=== PATIENT | female | born 1990 | race Caucasian/White ===

== ENCOUNTER 2017-11-14 23:56 | Emergency (ER) | payer OTHER ==
[2017-11-15] MEDS ORDERED: ONDANSETRON 4 MG/2 ML VIAL IVP STA (01:42)
[2017-11-15] MEDS ORDERED: KETOROLAC 30 MG/ML 1 ML VIAL IVP STA (01:42)
[2017-11-15] MEDS ORDERED: SODIUM CHLORIDE 0.9% 2,000 ML IV STA (01:42)
[2017-11-15 02:00] LABS: Appearance,Urine Clear (Clear); Bilirubin,Urine Negative (Negative); Blood,Urine Negative (Negative); Color,Urine Yellow; Glucose,Urine (UA) Negative (Negative); Ketones,Urine Negative (Negative); Leukocyte Esterase,Urine Negative (Negative); Nitrite,Urine Negative (Negative); PH, Urine 5.5 (5.0-8.0); Protein,Urine Trace (Negative); Specific Gravity,Urine 1.024 (1.001-1.035); Urobilinogen,Urine <2.0 mg/dL (<2.0)
[2017-11-15 02:33] LABS: Basophils # (A) 0.1 k/uL (0-0.2); Basophils % (A) 1 %; Eosinophils # (A) 0.6 k/uL (0-0.7); Eosinophils % (A) 6 %; HCT 36.7 % (34.0-46.0); HGB 12.6 gm/dL (11.4-16.0); Lymphocytes # (A) 3.1 k/uL (1.0-4.8); Lymphocytes % (A) 35 %; MCH 30.4 pg (25.0-35.0); MCHC 34.4 g/dL (31.0-37.0); MCV 88.6 fL (80.0-100.0); Mean Platelet Volume 6.5; Monocytes # (A) 0.4 k/uL (0-1.0); Monocytes % (A) 5 %; Neutrophils # (A) 4.5 k/uL (1.3-7.7); Neutrophils % (A) 51 %; Platelet Count 274 k/uL (150-450); RBC 4.15 m/uL (3.80-5.40); RDW 12.2 % (11.5-15.5); WBC 8.9 k/uL (3.8-10.6)
[2017-11-15 02:44] LABS: ALT 21 U/L (9-52); AST 16 U/L (14-36); Albumin 3.8 g/dL (3.5-5.0); Alkaline Phosphatase 40 U/L (38-126); Amylase 56 U/L (30-110); Anion Gap 6 mmol/L; Blood Urea Nitrogen 12 mg/dL (7-17); Carbon Dioxide 29 mmol/L (22-30); Chloride 104 mmol/L (98-107); Glucose 101 mg/dL (74-99); Lipase 140 U/L (23-300); Potassium 4.2 mmol/L (3.5-5.1); Sodium 139 mmol/L (137-145); Total Bilirubin 0.3 mg/dL (0.2-1.3); Total Protein 6.4 g/dL (6.3-8.2)
--- NOTE | 2017-11-15 02:57 | CT ---
EXAMINATION TYPE: CT abdomen pelvis wo con DATE OF EXAM: 11/15/2017 COMPARISON: None HISTORY: Right flank pain, back pain CT DLP: 272.20 mGycm Automated exposure control for dose reduction was used. TECHNIQUE: Helical acquisition of images was performed from the lung bases through the pelvis. FINDINGS: Lung bases are clear. There is no pleural effusion. There is subsegmental atelectasis at the lateral left lung base. Heart size is normal. There is no pericardial effusion. Stomach appears normal. Liver spleen pancreas gallbladder appear normal. Gallbladder is contracted. There is no adrenal mass. Kidneys have normal size and contour. There is no evidence of a renal calcu kash. Ureters do not appear dilated. I see no ureteral calculus. There is a septated large cystic pelvic mass above the urinary bladder and uterine fundus. This measu res 14 x 7.4 x 10 cm. This probably arises from the ovary. It is not clear which ovary is involved. U terus is anteverted. Bladder distends fairly smoothly. I see no bladder mass. There is no free fluid in the pelvis. The appendix appears normal. Appendix is anterior to the cystic pelvic mass. I see no intestinal wall thickening. There are no dilated loops. There is no retroperitoneal adenopathy. There is no mesenteric adenopathy. There is no inguinal hernia. The bony structures appear intact. IMPRESSION: THERE IS A LARGE SEPTATED THIN-WALLED CYSTIC PELVIC MASS PROBABLY OF OVARIAN ORIGIN. FOLLOW-UP IS REC OMMENDED. NO RENAL OBSTRUCTION. NORMAL APPENDIX.
--- NOTE | 2017-11-15 04:14 | ED ---
General Adult HPI - General Chief complaint: Abdominal Pain Stated complaint: lower back pain Time Seen by Provider: 11/15/17 01:35 Source: patient, RN notes reviewed Mode of arrival: ambulatory Limitations: no limitations - History of Present Illness Initial comments: 26-year-old female past medical history of asthma presents to the emergency department with a chief complaint of right flank pain times one week. Patient states these symptoms are similar with past episodes of pyelonephritis. Patient denies pain with urination but states that the last time she had pyelonephritis she did not have pain with urination and simply had the flank pain. She denies any history of kidney stones. Patient denies fevers or chills at home. She admits to mild nausea this week. Patient states she has felt pain and pressure in the right lower abdomen as well x 10 months. Patient states she has had worsening sharp right lower quadrant pain over the past week as well. Patient has no other complaints at this time including shortness of breath, chest pain, abdominal pain, nausea or vomiting, headache, or visual changes. - Related Data Home Medications Medication Instructions Recorded Confirmed Ibuprofen [Motrin] 600 mg PO Q8HR PRN 11/15/17 11/15/17 Allergies Allergy/AdvReac Type Severity Reaction Status Date / Time amoxicillin [Amoxicillin] Allergy Rash/Hives Verified 11/15/17 00:14 Penicillins Allergy Rash/Hives Verified 11/15/17 00:14 Review of Systems ROS Statement: Those systems with pertinent positive or pertinent negative responses have been documented in the HPI. ROS Other: All systems not noted in ROS Statement are negative. Past Medical History Past Medical History: Asthma History of Any Multi-Drug Resistant Organisms: None Reported Past Surgical History: Section, Tonsillectomy Additional Past Surgical History / Comment(s): ESTRADA PRASAD Past Anesthesia/Blood Transfusion Reactions: No Reported Reaction Past Psychological History: ADD/ADHD, Anxiety, Depression Smoking Status: Former smoker Past Alcohol Use History: None Reported Past Drug Use History: None Reported - Past Family History Father Additional Family Medical History / Comment(s): Patient has no contact with her father. Mother Additional Family Medical History / Comment(s): Mother is age 58 with history of schizophrenia. Brother(s) Additional Family Medical History / Comment(s): She states she has 1 brother that she does not know. She denies having any sisters. She has 4 children of her own. General Exam Limitations: no limitations General appearance: alert, in no apparent distress (Patient is nontoxic appearing, she is sitting up in bed, she is responsive and pleasant) Head exam: Present: atraumatic, normocephalic, normal inspection Eye exam: Present: normal appearance, PERRL, EOMI. Absent: scleral icterus, conjunctival injection, periorbital swelling ENT exam: Present: normal exam, mucous membranes moist Neck exam: Present: normal inspection, full ROM. Absent: tenderness, meningismus, lymphadenopathy Respiratory exam: Present: normal lung sounds bilaterally. Absent: respiratory distress, wheezes, rales, rhonchi, stridor Cardiovascular Exam: Present: regular rate, normal rhythm, normal heart sounds. Absent: systolic murmur, diastolic murmur, rubs, gallop, clicks GI/Abdominal exam: Present: soft, tenderness (Mild right lower quadrant tenderness), normal bowel sounds. Absent: distended, guarding, rebound, rigid Back exam: Present: CVA tenderness (R) Neurological exam: Present: alert, oriented X3, CN II-XII intact Psychiatric exam: Present: normal affect, normal mood Course Vital Signs 11/15/17 11/15/17 00:12 04:29 Temperature 98.4 F 97.8 F Pulse Rate 117 H 90 Respiratory 16 20 Rate Blood Pressure 119/77 118/62 O2 Sat by Pulse 98 97 Oximetry - Reevaluation(s) Reevaluation #1: 11/15/17 04:31 Spoke with iona on [facility] transfer team for [facility]. She is going to call back after speaking with a physician. Reevaluation #2: 11/15/17 05:02 Spoke with Steve at [facility]. They are currently trying to find a bed and will call back. Reevaluation #3: 11/15/17 05:53 Iona from [facility] called back with a bed available. [id number] 1. EMS will be activated at this time. Medical Decision Making - Medical Decision Making 26-year-old female presents to the emergency determine for a chief complaint of right flank pain times one week. Patient states symptoms are consistent with past episodes of pyelonephritis. She denies dysuria or fevers. Patient also states she has had right sided lower abdominal fullness for 10 months. She states she is starting to get sharp pain in the right lower quadrant as well. On exam patient does have tenderness noted in the right lower quadrant. Right CVA tenderness. CBC and CMP unremarkable. Urine does not show any evidence of infection. CT abdomen and pelvis was ordered. This shows a septated large cystic pelvic mass above the urinary bladder and uterine fundus. This measures 14 x 7.4 x 10 cm probably arising from the ovary. This puts patient at high risk of torsion. Dr Kirkland consulted Dr. Florez who recommended transfer. Patient reevaluated multiple times before transfer. Pain under control at this time. [facility] transfer. Patient will be transferred by EMS as a direct admit. - Lab Data Result diagrams: 11/15/17 02:09 11/15/17 02:09 Lab Results 11/15/17 11/15/17 11/15/17 Range/Units 01:50 01:50 02:09 WBC (3.8-10.6) k/uL RBC (3.80-5.40) m/uL Hgb (11.4-16.0) gm/dL Hct (34.0-46.0) % MCV (80.0-100.0) fL MCH (25.0-35.0) pg MCHC (31.0-37.0) g/dL RDW (11.5-15.5) % Plt Count (150-450) k/uL Neutrophils % % Lymphocytes % % Monocytes % % Eosinophils % % Basophils % % Neutrophils # (1.3-7.7) k/uL Lymphocytes # (1.0-4.8) k/uL Monocytes # (0-1.0) k/uL Eosinophils # (0-0.7) k/uL Basophils # (0-0.2) k/uL Sodium 139 (137-145) mmol/L Potassium 4.2 (3.5-5.1) mmol/L Chloride 104 (98-107) mmol/L Carbon Dioxide 29 (22-30) mmol/L Anion Gap 6 mmol/L BUN 12 (7-17) mg/dL Creatinine 0.71 (0.52-1.04) mg/dL Est GFR (CKD-EPI)AfAm >90 (>60 ml/min/1.73 sqM) Est GFR (CKD-EPI)NonAf >90 (>60 ml/min/1.73 sqM) Glucose 101 H (74-99) mg/dL Calcium 9.0 (8.4-10.2) mg/dL Total Bilirubin 0.3 (0.2-1.3) mg/dL AST 16 (14-36) U/L ALT 21 (9-52) U/L Alkaline Phosphatase 40 (38-126) U/L Total Protein 6.4 (6.3-8.2) g/dL Albumin 3.8 (3.5-5.0) g/dL Amylase 56 (30-110) U/L Lipase 140 (23-300) U/L Urine Color Yellow Urine Appearance Clear (Clear) Urine pH 5.5 (5.0-8.0) Ur Specific [place] 1.024 (1.001-1.035) Urine Protein Trace H (Negative) Urine Glucose (UA) Negative (Negative) Urine Ketones Negative (Negative) Urine Blood Negative (Negative) Urine Nitrite Negative (Negative) Urine Bilirubin Negative (Negative) Urine Urobilinogen <2.0 (<2.0) mg/dL Ur Leukocyte Esterase Negative (Negative) Urine HCG, Qual Not Detected (Not Detectd) 11/15/17 Range/Units 02:09 WBC 8.9 (3.8-10.6) k/uL RBC 4.15 (3.80-5.40) m/uL Hgb 12.6 (11.4-16.0) gm/dL Hct 36.7 (34.0-46.0) % MCV 88.6 (80.0-100.0) fL MCH 30.4 (25.0-35.0) pg MCHC 34.4 (31.0-37.0) g/dL RDW 12.2 (11.5-15.5) % Plt Count 274 (150-450) k/uL Neutrophils % 51 % Lymphocytes % 35 % Monocytes % 5 % Eosinophils % 6 % Basophils % 1 % Neutrophils # 4.5 (1.3-7.7) k/uL Lymphocytes # 3.1 (1.0-4.8) k/uL Monocytes # 0.4 (0-1.0) k/uL Eosinophils # 0.6 (0-0.7) k/uL Basophils # 0.1 (0-0.2) k/uL Sodium (137-145) mmol/L Potassium (3.5-5.1) mmol/L Chloride (98-107) mmol/L Carbon Dioxide (22-30) mmol/L Anion Gap mmol/L BUN (7-17) mg/dL Creatinine (0.52-1.04) mg/dL Est GFR (CKD-EPI)AfAm (>60 ml/min/1.73 sqM) Est GFR (CKD-EPI)NonAf (>60 ml/min/1.73 sqM) Glucose (74-99) mg/dL Calcium (8.4-10.2) mg/dL Total Bilirubin (0.2-1.3) mg/dL AST (14-36) U/L ALT (9-52) U/L Alkaline Phosphatase (38-126) U/L Total Protein (6.3-8.2) g/dL Albumin (3.5-5.0) g/dL Amylase (30-110) U/L Lipase (23-300) U/L Urine Color Urine Appearance (Clear) Urine pH (5.0-8.0) Ur Specific [place] (1.001-1.035) Urine Protein (Negative) Urine Glucose (UA) (Negative) Urine Ketones (Negative) Urine Blood (Negative) Urine Nitrite (Negative) Urine Bilirubin (Negative) Urine Urobilinogen (<2.0) mg/dL Ur Leukocyte Esterase (Negative) Urine HCG, Qual (Not Detectd) Disposition Clinical Impression: Pelvic mass Disposition: OTHER INSTITUTION NOT DEFINED Condition: Good Is patient prescribed a controlled substance at d/c from ED?: No Referrals: None,Stated [Primary Care Provider] - 1-2 days Time of Disposition: 04:15 - Out of Hospital Transfer - Req. Specs Out of Hospital Transfer - Requested Specifics: Other Non-Acute ([facility] direct admit)
[2017-11-15 04:29] VITALS: BP 118/62; PULSE 90; RESP 20; TEMP 97.8
== END 2017-11-15 06:21 | disposition short-term general hospital (02) ==
LOC: EC 23:56
DX: R19.09 Other intra-abdominal and pelvic swelling, mass and lump (principal); R10.31 Right lower quadrant pain; R11.0 Nausea; Z87.891 Personal history of nicotine dependence; Z88.0 Allergy status to penicillin
CPT/HCPCS: 36415; 80053; 82150; 83690; 85025; 81003; 81025; 87040; 87086; 74176; 99285; 96374; 96375; 96361 ×4; J2405; J1885